=== PATIENT | female | born 1960 | race Caucasian/White ===

== ENCOUNTER 2021-11-07 17:18 | Emergency (ER) | payer OTHER ==
[2021-11-07] MEDS ORDERED: Sodium Chloride 0.9% 1000 ML 1,000 ML ONE (17:44)
[2021-11-07] MEDS ORDERED: Sodium Chloride 0.9% 1000 ML 1,000 ML IV SCH (17:45)
--- NOTE | 2021-11-07 18:13 | ERPHSYRPT ---
- History of Present Illness Time Seen by Provider: 11/07/21 17:35 Source: patient Exam Limitations: no limitations Patient Subjective Stated Complaint: pt here for abnormal labs, she states her amonia levels have been elevated, vomited yesterday, none today Triage Nursing Assessment: pt alert, able to undress self, resp easy, face mask in place, skin w/d/p. no edema noted, abd soft Physician History: Patient is a 61-year-old white female who is in a alcohol and drug rehab facility who has a portal systemic shunt who is sent to the ER because she has elevation of her liver enzymes and her ammonia seems to be higher. She is being treated with lactulose. She did receive 1 Pfizer COVID shot vaccine she vomited one yesterday that she is no report of any GI bleed. She has been without alcohol for 14 days. On arrival she seems to be alert and oriented and pleasant. Severity: mild Associated Symptoms: nausea, vomiting Allergies/Adverse Reactions: acetaminophen [From Tylenol] Adverse Reaction (Verified 11/07/21 17:36) Hx Tetanus, Diphtheria Vaccination/Date Given: No Hx Influenza Vaccination/Date Given: No Hx Pneumococcal Vaccination/Date Given: No Immunizations Up to Date: Yes Travel Risk - International Travel Have you traveled outside of the country in past 3 weeks: No - Coronavirus Screening Are you exhibiting any of the following symptoms?: No - Vaccine Status Have you recieved a Covid-19 vaccination: Yes [employer]: [employer] - Vaccination Dates Date of 2cond Vaccination (if applicable): n/a - Review of Systems Constitutional: No Fever, No Chills Eyes: No Symptoms Ears, Nose, & Throat: No Symptoms Respiratory: No Cough, No Dyspnea Cardiac: No Chest Pain, No Edema, No Syncope Abdominal/Gastrointestinal: Nausea, Vomiting, No Abdominal Pain, No Diarrhea Genitourinary Symptoms: No Dysuria Musculoskeletal: No Back Pain, No Neck Pain Skin: No Rash Neurological: No Dizziness, No Focal Weakness, No Sensory Changes Psychological: No Symptoms Endocrine: No Symptoms All Other Systems: Reviewed and Negative - Past Medical History Pertinent Past Medical History: Yes Other Medical History: 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, - Past Surgical History Past Surgical History: Yes Neuro Surgical History: Brain Shunt Female Surgical History: Hysterectomy - Social History Smoking Status: Current every day smoker How long have you smoked: 1/2 Exposure to second hand smoke: Yes Patient Lives Alone: No (rehab center) - Nursing Vital Signs Nursing Vital Signs: Initial Vital Signs Temperature 97.2 F 11/07/21 17:29 Pulse Rate 102 H 11/07/21 17:29 Respiratory Rate 18 11/07/21 17:29 Blood Pressure 152/83 11/07/21 17:29 O2 Sat by Pulse Oximetry 96 11/07/21 17:29 Pain Scale Pain Intensity 0 - Physical Exam General Appearance: mild distress, alert Eye Exam: PERRL/EOMI, eyes nml inspection Ears, Nose, Throat Exam: normal ENT inspection, TMs normal, pharynx normal, moist mucous membranes Neck Exam: normal inspection, non-tender, supple, full range of motion Respiratory Exam: normal breath sounds, lungs clear, No respiratory distress Cardiovascular Exam: regular rate/rhythm, normal heart sounds, normal peripheral pulses Gastrointestinal/Abdomen Exam: soft, normal bowel sounds, No tenderness, No mass Back Exam: normal inspection, normal range of motion, No CVA tenderness, No vertebral tenderness Extremity Exam: normal inspection, normal range of motion, pelvis stable Neurologic Exam: alert, oriented x 3, cooperative, normal mood/affect, nml cerebellar function, nml station & gait, sensation nml, No motor deficits Skin Exam: normal color, warm, dry, No rash Lymphatic Exam: No adenopathy SpO2: 96 - Course Nursing assessment & vital signs reviewed: Yes EKG Interpreted by Me: RATE (100), Sinus Rhythm, NORMAL AXIS, prolonged QT interval, NORMAL QRS, Non-specific ST Changes - Radiology Exams Chest X-ray Interpretation: Interpreted by me, Negative (Negative for any acute process) - CT Exams Abdomen/Pelvis CT Interpretation: Tele-radiologist Report Ordered Tests: Active Orders 24 hr Category Date Time Status EKG-ER Only STAT Care 11/07/21 17:34 Active IV Insertion STAT Care 11/07/21 17:34 Active ABDOMEN AND PELVIS W/0 CONTRAS [CT] Stat Exams 11/07/21 17:35 Taken CHEST 1 VIEW (PORTABLE) Stat Exams 11/07/21 17:36 Taken ACETAMINOPHEN Stat Lab 11/07/21 17:35 Completed AMYLASE Stat Lab 11/07/21 17:35 Completed Alcohol [ETHYL ALCOHOL] Stat Lab 11/07/21 17:35 Completed BLOOD CULTURE Stat Lab 11/07/21 18:22 Received CBC W DIFF Stat Lab 11/07/21 17:34 Completed CMP Stat Lab 11/07/21 17:35 Completed LIPASE Stat Lab 11/07/21 17:35 Completed Lactic Acid Stat Lab 11/07/21 17:45 Completed MAGNESIUM Stat Lab 11/07/21 17:35 Completed Occult Blood Stool [FECAL OCCULT BLOOD - SCREENING] Lab 11/07/21 17:39 Ordered Stat PROTIME WITH INR Stat Lab 11/07/21 17:35 Completed TROPONIN Q3H Lab 11/07/21 17:35 Completed TROPONIN Q3H Lab 11/07/21 20:45 Ordered TROPONIN Q3H Lab 11/07/21 23:45 Ordered TROPONIN Q3H Lab 11/08/21 02:45 Ordered TROPONIN Q3H Lab 11/08/21 05:45 Ordered UA W/RFX CULTURE Stat Lab 11/07/21 Ordered Urine Triage Profile Stat Lab 11/07/21 17:35 Ordered Medication Summary Generic Name Dose Route Start Last Admin Trade Name Freq PRN Reason Stop Dose Admin Sodium Chloride 1,000 mls @ 100 mls/hr 11/07/21 17:45 11/07/21 17:45 Sodium Chloride 0.9% 1000 Ml IV 12/07/21 17:44 100 mls/hr .Q10H DORCAS Administration Lab/Rad Data: Laboratory Result Diagrams 11/07/21 17:34 11/07/21 17:35 Laboratory Results 11/07/21 11/07/21 11/07/21 Range/Units 17:45 17:35 17:35 WBC (4.0-10.5) x10^3/uL RBC (4.1-5.4) x10^6/uL Hgb (12.0-16.0) g/dL Hct (35-47) % MCV (78-100) fL MCH (26-32) pg MCHC (32-36) g/dL RDW (11.5-14.0) % Plt Count (150-450) x10^3/uL MPV (7.5-11.0) fL Gran % (36.0-66.0) % Immature Gran % (Auto) (0.00-0.1) % Nucleat RBC Rel Count (0.00-0.1) % Eos # (Auto) (0-0.5) x10^3/uL Immature Gran # (Auto) (0.00-0.01) x10^3u/L Absolute Lymphs (auto) (1.0-4.6) x10^3/uL Absolute Monos (auto) (0.0-1.3) x10^3/uL Absolute Nucleated RBC (0.00-0.01) x10^3u/L Lymphocytes % (24.0-44.0) % Monocytes % (0.0-12.0) % Eosinophils % (0.00-5.0) % Basophils % (0.0-0.4) % Absolute Granulocytes (1.4-6.9) x10^3/uL Basophils # (0-0.4) x10^3/uL PT (9.4-12.5) SECONDS INR (0.8-3.0) Sodium (137-145) mmol/L Potassium (3.5-5.1) mmol/L Chloride (98-107) mmol/L Carbon Dioxide (22-30) mmol/L Anion Gap (5-15) MEQ/L BUN (7-17) mg/dL Creatinine (0.52-1.04) mg/dL Estimated GFR ML/MIN Glucose (74-106) mg/dL Lactic Acid 1.6 (0.4-2.0) Calcium (8.4-10.2) mg/dL Magnesium (1.6-2.3) mg/dL Total Bilirubin (0.2-1.3) mg/dL AST (14-36) U/L ALT (0-35) U/L Alkaline Phosphatase (38-126) U/L Ammonia 19 (9-30) umol/L Troponin I 0.014 (0.000-0.034) ng/mL Serum Total Protein (6.3-8.2) g/dL Albumin (3.5-5.0) g/dL Amylase (30-110) U/L Lipase (23-300) U/L Acetaminophen (10-30) ug/ml Ethyl Alcohol (0-10) mg/dL 11/07/21 11/07/21 11/07/21 Range/Units 17:35 17:35 17:35 WBC (4.0-10.5) x10^3/uL RBC (4.1-5.4) x10^6/uL Hgb (12.0-16.0) g/dL Hct (35-47) % MCV (78-100) fL MCH (26-32) pg MCHC (32-36) g/dL RDW (11.5-14.0) % Plt Count (150-450) x10^3/uL MPV (7.5-11.0) fL Gran % (36.0-66.0) % Immature Gran % (Auto) (0.00-0.1) % Nucleat RBC Rel Count (0.00-0.1) % Eos # (Auto) (0-0.5) x10^3/uL Immature Gran # (Auto) (0.00-0.01) x10^3u/L Absolute Lymphs (auto) (1.0-4.6) x10^3/uL Absolute Monos (auto) (0.0-1.3) x10^3/uL Absolute Nucleated RBC (0.00-0.01) x10^3u/L Lymphocytes % (24.0-44.0) % Monocytes % (0.0-12.0) % Eosinophils % (0.00-5.0) % Basophils % (0.0-0.4) % Absolute Granulocytes (1.4-6.9) x10^3/uL Basophils # (0-0.4) x10^3/uL PT 13.2 H (9.4-12.5) SECONDS INR 1.27 (0.8-3.0) Sodium (137-145) mmol/L Potassium (3.5-5.1) mmol/L Chloride (98-107) mmol/L Carbon Dioxide (22-30) mmol/L Anion Gap (5-15) MEQ/L BUN (7-17) mg/dL Creatinine (0.52-1.04) mg/dL Estimated GFR ML/MIN Glucose (74-106) mg/dL Lactic Acid (0.4-2.0) Calcium (8.4-10.2) mg/dL Magnesium 1.6 (1.6-2.3) mg/dL Total Bilirubin (0.2-1.3) mg/dL AST (14-36) U/L ALT (0-35) U/L Alkaline Phosphatase (38-126) U/L Ammonia (9-30) umol/L Troponin I (0.000-0.034) ng/mL Serum Total Protein (6.3-8.2) g/dL Albumin (3.5-5.0) g/dL Amylase (30-110) U/L Lipase (23-300) U/L Acetaminophen < 10 L (10-30) ug/ml Ethyl Alcohol < 10 (0-10) mg/dL 11/07/21 11/07/21 Range/Units 17:35 17:34 WBC 6.6 (4.0-10.5) x10^3/uL RBC 4.04 L (4.1-5.4) x10^6/uL Hgb 13.3 (12.0-16.0) g/dL Hct 40.7 (35-47) % MCV 100.7 H (78-100) fL MCH 32.9 H (26-32) pg MCHC 32.7 (32-36) g/dL RDW 12.5 (11.5-14.0) % Plt Count 154 (150-450) x10^3/uL MPV 10.1 (7.5-11.0) fL Gran % 49.5 (36.0-66.0) % Immature Gran % (Auto) 0.2 H (0.00-0.1) % Nucleat RBC Rel Count 0.0 (0.00-0.1) % Eos # (Auto) 0.33 (0-0.5) x10^3/uL Immature Gran # (Auto) 0.01 (0.00-0.01) x10^3u/L Absolute Lymphs (auto) 2.27 (1.0-4.6) x10^3/uL Absolute Monos (auto) 0.59 (0.0-1.3) x10^3/uL Absolute Nucleated RBC 0.00 (0.00-0.01) x10^3u/L Lymphocytes % 34.6 (24.0-44.0) % Monocytes % 9.0 (0.0-12.0) % Eosinophils % 5.0 (0.00-5.0) % Basophils % 1.7 (0.0-0.4) % Absolute Granulocytes 3.25 (1.4-6.9) x10^3/uL Basophils # 0.11 (0-0.4) x10^3/uL PT (9.4-12.5) SECONDS INR (0.8-3.0) Sodium 132 L (137-145) mmol/L Potassium 4.1 (3.5-5.1) mmol/L Chloride 99 (98-107) mmol/L Carbon Dioxide 23 (22-30) mmol/L Anion Gap 14.0 (5-15) MEQ/L BUN 8 (7-17) mg/dL Creatinine 0.65 (0.52-1.04) mg/dL Estimated GFR > 60.0 ML/MIN Glucose 93 (74-106) mg/dL Lactic Acid (0.4-2.0) Calcium 9.3 (8.4-10.2) mg/dL Magnesium (1.6-2.3) mg/dL Total Bilirubin 1.90 H (0.2-1.3) mg/dL AST 76 H (14-36) U/L ALT 50 H (0-35) U/L Alkaline Phosphatase 164 H (38-126) U/L Ammonia (9-30) umol/L Troponin I (0.000-0.034) ng/mL Serum Total Protein 7.4 (6.3-8.2) g/dL Albumin 3.8 (3.5-5.0) g/dL Amylase 69 (30-110) U/L Lipase 211 (23-300) U/L Acetaminophen (10-30) ug/ml Ethyl Alcohol (0-10) mg/dL - Progress Progress: unchanged - Departure Departure Disposition: Home Clinical Impression: Increased ammonia level Condition: Stable Critical Care Time: No Referrals: KATHY OSEI PA [NON-STAFF PHY W/O PRIVILEGES] - Follow up/PCP as directed Instructions: Ammonia Blood Test Prescriptions: Metronidazole 500 mg [Flagyl 500 MG] 500 mg PO TID #21 tablet Lactulose [Lactulose 20 gm/30Ml Ud Cup] 20 gm PO QID 30 Days #120 udcup
[2021-11-07 18:39] LABS: Absolute Neutrophil Ct (ANC) 3.25 x10^3/uL (1.4-6.9); Basophil (Absolute #) 0.11 x10^3/uL (0-0.4); Eosinophil (Absolute #) 0.33 x10^3/uL (0-0.5); Hematocrit 40.7 % (35-47); Hemoglobin 13.3 g/dL (12.0-16.0); Lymphocyte (Absolute #) 2.27 x10^3/uL (1.0-4.6); Lymphocytes % 34.6 % (24.0-44.0); Mean Cell Volume 100.7 fL (78-100); Mean Corpuscular Hemoglobin 32.9 pg (26-32); Mean Corpuscular Hgb Concent. 32.7 g/dL (32-36); Mean Platelet Volume 10.1 fL (7.5-11.0); Monocyte (Absolute #) 0.59 x10^3/uL (0.0-1.3); Neutrophil % 49.5 % (36.0-66.0); Platelet Count 154 x10^3/uL (150-450); Red Blood Count 4.04 x10^6/uL (4.1-5.4); Red Cell Distribution Width 12.5 % (11.5-14.0); White Blood Count 6.6 x10^3/uL (4.0-10.5)
[2021-11-07 18:55] LABS: ETHYL ALCOHOL < 10 mg/dL (0-10); MAGNESIUM 1.6 mg/dL (1.6-2.3)
[2021-11-07 18:57] LABS: ALBUMIN 3.8 g/dL (3.5-5.0); ALKALINE PHOSPHATASE 164 U/L (38-126); AMYLASE 69 U/L (30-110); BLOOD UREA NITROGEN 8 mg/dL (7-17); CHLORIDE 99 mmol/L (98-107); Calcium 9.3 mg/dL (8.4-10.2); Carbon Dioxide 23 mmol/L (22-30); Creatinine 1 0.65 mg/dL (0.52-1.04); EST GLOMERULAR FILTRATION RATE > 60.0 ML/MIN; Glucose 93 mg/dL (74-106); INR 1.27 (0.8-3.0); LIPASE 211 U/L (23-300); PROTIME 13.2 SECONDS (9.4-12.5); Potassium 4.1 mmol/L (3.5-5.1); SGOT/AST 76 U/L (14-36); SGPT/ALT 50 U/L (0-35); SODIUM 132 mmol/L (137-145); Total Protein 7.4 g/dL (6.3-8.2)
[2021-11-07 19:13] VITALS: BP 114/78
[2021-11-07 19:21] VITALS: O2SAT 96
[2021-11-07 19:31] VITALS: PULSE 95
--- NOTE | 2021-11-08 08:35 | XRAY ---
Indication: Liver failure. TIPS procedure 1.5 years ago. Multiple contiguous axial images obtained through the abdomen and pelvis without contrast. Comparison: None Study is slightly degraded by respiration artifact. Lung bases demonstrate small right lower lobe and right infrahilar calcified granulomas. No infiltrate or effusion. Heart not enlarged. Noncontrasted stomach and bowel loops appear nonobstructed. Appendix not visualized. Moderate diffuse scattered colonic fecal debris throughout including rectum. No free fluid/air. Liver demonstrates portal shunt in situ. Tiny splenic calcified granulomas. Remaining liver, gallbladder, pancreas, spleen, adrenal glands, kidneys, ureters, and bladder are unremarkable for noncontrast exam. Moderate scattered aortoiliac calcifications without AAA. Osseous structures intact with mild degenerative changes throughout the spine, remote T12 superior endplate fracture with approximately 25% height loss, and bilateral L5 spondylolysis with minimal 1-2 mm spondylolisthesis. Impression: 1. Respiration artifact. 2. Moderate diffuse fecal stasis. 3. Incidental portal shunt, chronic bony findings, and old granulomatous disease.
--- NOTE | 2021-11-08 08:37 | XRAY ---
Indication: Cough. Comparison: None Portable chest demonstrates minimal left base subsegmental atelectasis/scarring and a few bilateral calcified granulomas. No focal infiltrate, consolidation, or large effusion. Heart not enlarged. Bony thorax intact with osteopenia, mild degenerative changes, old right clavicle fracture, and old right humerus fracture with orthopedic fixation hardware. Impression: Nonacute chest with chronic features.
== END 2021-11-07 19:41 | disposition home or self-care (01) ==
LOC: ED 17:18
DX: R79.89 Other specified abnormal findings of blood chemistry (principal); R74.8 Abnormal levels of other serum enzymes; R11.2 Nausea with vomiting, unspecified; Z98.2 Presence of cerebrospinal fluid drainage device; Z72.0 Tobacco use; Z79.899 Other long term (current) drug therapy
CPT/HCPCS: 36000; 36415; 71045; 74176; 80053; 80307; 82140; 82150; 83605; 83690; 83735; 84484; 85025; 85610; 87040; 93005; 99284; G0480

== ENCOUNTER 2021-11-14 09:30 | Emergency (ER) | payer OTHER ==
--- NOTE | 2021-11-14 10:00 | ERPHSYRPT ---
- History of Present Illness Time Seen by Provider: 11/14/21 09:50 Source: patient Exam Limitations: no limitations Patient Subjective Stated Complaint: Pt states "I have been weak and shaky for the past week or so." Triage Nursing Assessment: PT presented alert and oriented X 3, skin pwd. Pt has tremors and when ambulating she is extremely shaky. Physician History: Patient is a 61-year-old female presents to emergency department for evaluation of generalized weakness and tremors. Patient states symptoms started ap proximately 1 week ago. Patient has been feeling weak and tremulous for the past week. No pain. No chest pain or shortness of breath. No nausea vomiting or diaphoresis. Patient has a history of alcoholism and is currently trying to quit. Patient's last drink was approximately 24 days ago. Patient states that she quit she has been having trouble sleeping. Patient has been medicated for sleep. Patient recently started on gabapentin. Otherwise no new medications added in the past month. Patient denies trauma. No chest pain or shortness of breath. No nausea vomiting or diaphoresis. No numbness tingling or weakness. Patient voices no other complaints or concerns at this time. Timing/Duration: week(s) (1 week) Severity: moderate Modifying Factors: Improves With: nothing Associated Symptoms: denies symptoms Allergies/Adverse Reactions: acetaminophen [From Tylenol] Adverse Reaction (Verified 11/07/21 17:36) Home Medications: Acamprosate Calcium 333 mg PO DAILY 11/14/21 [History] Furosemide 40 mg [Lasix 40 MG] 40 mg PO DAILY 11/14/21 [History] Gabapentin 100 mg PO HS 11/14/21 [History] Lactulose [Lactulose 20 gm/30Ml Ud Cup] 20 gm PO QID 11/14/21 [History] Loratadine 10 mg [Claritin 10 mg] 10 mg PO DAILY 11/14/21 [History] Melatonin 10 mg PO HS 11/14/21 [History] Omeprazole 40 mg PO DAILY 11/14/21 [History] Potassium Chloride 20 meq PO DAILY 11/14/21 [History] Sulfamethoxazole/Trimethoprim [Sulfamethoxazole-Tmp Ds Tablet] 1 each PO BID 11/14/21 [History] Trazodone HCl 50 mg [Desyrel 50 mg] 1 tab PO DAILY 11/14/21 [History] hydrOXYzine pamoate [Vistaril] 50 mg PO TID 11/14/21 [History] metroNIDAZOLE [Metronidazole] 500 mg PO DAILY 11/14/21 [History] Hx Tetanus, Diphtheria Vaccination/Date Given: No Hx Influenza Vaccination/Date Given: No Hx Pneumococcal Vaccination/Date Given: No Immunizations Up to Date: Yes Travel Risk - International Travel Have you traveled outside of the country in past 3 weeks: No - Coronavirus Screening Are you exhibiting any of the following symptoms?: No Close contact with a COVID-19 positive Pt in past 14-21 Days: No - Vaccine Status Have you recieved a Covid-19 vaccination: Yes [employer]: [employer] - Vaccination Dates Date of 2cond Vaccination (if applicable): n/a - Review of Systems Constitutional: No Symptoms, No Fever, No Chills Eyes: No Symptoms Ears, Nose, & Throat: No Symptoms Respiratory: No Symptoms, No Cough, No Dyspnea Cardiac: No Symptoms, No Chest Pain, No Edema, No Syncope Abdominal/Gastrointestinal: No Symptoms, No Abdominal Pain, No Nausea, No Vomiting, No Diarrhea Genitourinary Symptoms: No Symptoms, No Dysuria Musculoskeletal: No Symptoms, No Back Pain, No Neck Pain Skin: No Symptoms, No Rash Neurological: No Symptoms, No Dizziness, No Focal Weakness, No Sensory Changes Psychological: No Symptoms Endocrine: No Symptoms Hematologic/Lymphatic: No Symptoms Immunological/Allergic: No Symptoms All Other Systems: Reviewed and Negative - Past Medical History Pertinent Past Medical History: Yes Neurological History: No Pertinent History Other Medical History: 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, - Past Surgical History Past Surgical History: Yes Neuro Surgical History: Brain Shunt Female Surgical History: Hysterectomy Other Surgical History: 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 - Social History Smoking Status: Current every day smoker How long have you smoked: 1/2 Exposure to second hand smoke: Yes Drug Use: none Patient Lives Alone: No (rehab center) - Nursing Vital Signs Nursing Vital Signs: Initial Vital Signs Temperature 99.0 F 11/14/21 09:41 Pulse Rate 104 H 11/14/21 09:41 Respiratory Rate 20 11/14/21 09:41 Blood Pressure 144/77 11/14/21 09:41 O2 Sat by Pulse Oximetry 96 11/14/21 09:41 Pain Scale Pain Intensity 0 - Physical Exam General Appearance: no apparent distress, alert Eye Exam: PERRL/EOMI, eyes nml inspection Ears, Nose, Throat Exam: normal ENT inspection, TMs normal, pharynx normal, moist mucous membranes Neck Exam: normal inspection, non-tender, supple, full range of motion Respiratory Exam: normal breath sounds, lungs clear, airway intact, No chest tenderness, No respiratory distress Cardiovascular Exam: regular rate/rhythm, normal heart sounds, normal peripheral pulses Gastrointestinal/Abdomen Exam: soft, normal bowel sounds, No tenderness, No mass Back Exam: normal inspection, normal range of motion, No CVA tenderness, No vertebral tenderness Extremity Exam: normal inspection, normal range of motion, pelvis stable Neurologic Exam: alert, oriented x 3, cooperative, normal mood/affect, nml cerebellar function, nml station & gait, sensation nml, No motor deficits Skin Exam: normal color, warm, dry, No rash Lymphatic Exam: No adenopathy SpO2 Interpretation: normal SpO2: 96 O2 Delivery: Room Air - Course Nursing assessment & vital signs reviewed: Yes EKG Interpreted by Me: RATE (86), Sinus Rhythm, NORMAL AXIS, prolonged QT interval - CT Exams Abdomen/Pelvis CT Interpretation: Tele-radiologist Report (Fecal stasis with rectal impaction. Portal shot in situ. Chronic bony findings. Old granulomatous disease remote T12 endplate fracture L5 spondylosis) Ordered Tests: Active Orders 24 hr Category Date Time Status Dough Cutter STAT Care 11/14/21 09:54 Active EKG-ER Only STAT Care 11/14/21 09:53 Active IV Insertion STAT Care 11/14/21 09:53 Active Pulse Oximetry (ED) STAT Care 11/14/21 09:53 Active ABDOMEN AND PELVIS W/0 CONTRAS [CT] Stat Exams 11/14/21 14:41 Completed CBC W DIFF Stat Lab 11/14/21 10:43 Completed CMP Stat Lab 11/14/21 10:43 Completed LIPASE Stat Lab 11/14/21 13:20 Completed MAGNESIUM Stat Lab 11/14/21 10:43 Completed TROPONIN Q3H Lab 11/14/21 10:43 Completed TROPONIN Q3H Lab 11/14/21 13:20 Completed TROPONIN Q3H Lab 11/14/21 16:00 Ordered TROPONIN Q3H Lab 11/14/21 19:00 Ordered TROPONIN Q3H Lab 11/14/21 22:00 Ordered TSH, 3RD Generation Stat Lab 11/14/21 10:43 Completed UA W/RFX CULTURE Stat Lab 11/14/21 Ordered Medication Summary Discontinued Medications Generic Name Dose Route Start Last Admin Trade Name Mirella PRN Reason Stop Dose Admin Sodium Chloride 1,000 mls @ 999 mls/hr 11/14/21 13:17 11/14/21 14:50 Sodium Chloride 0.9% 1000 Ml IV 11/14/21 14:17 Infused .Q1H1M STA Infusion Sodium Chloride Confirm 11/14/21 13:33 Sodium Chloride 0.9% 1000 Ml Administered 11/14/21 13:34 Dose 1,000 mls @ ud .ROUTE .STK-MED ONE Lab/Rad Data: Laboratory Result Diagrams 11/14/21 10:43 11/14/21 10:43 Laboratory Results 11/14/21 11/14/21 11/14/21 Range/Units 13:20 13:20 10:43 WBC (4.0-10.5) x10^3/uL RBC (4.1-5.4) x10^6/uL Hgb (12.0-16.0) g/dL Hct (35-47) % MCV (78-100) fL MCH (26-32) pg MCHC (32-36) g/dL RDW (11.5-14.0) % Plt Count (150-450) x10^3/uL MPV (7.5-11.0) fL Gran % (36.0-66.0) % Immature Gran % (Auto) (0.00-0.4) % Nucleat RBC Rel Count (0.00-0.1) % Eos # (Auto) (0-0.5) x10^3/uL Immature Gran # (Auto) (0.00-0.03) x10^3u/L Absolute Lymphs (auto) (1.0-4.6) x10^3/uL Absolute Monos (auto) (0.0-1.3) x10^3/uL Absolute Nucleated RBC (0.00-0.01) x10^3u/L Lymphocytes % (24.0-44.0) % Monocytes % (0.0-12.0) % Eosinophils % (0.00-5.0) % Basophils % (0.0-0.4) % Absolute Granulocytes (1.4-6.9) x10^3/uL Basophils # (0-0.4) x10^3/uL Sodium (137-145) mmol/L Potassium (3.5-5.1) mmol/L Chloride (98-107) mmol/L Carbon Dioxide (22-30) mmol/L Anion Gap (5-15) MEQ/L BUN (7-17) mg/dL Creatinine (0.52-1.04) mg/dL Estimated GFR ML/MIN Glucose (74-106) mg/dL Calcium (8.4-10.2) mg/dL Magnesium (1.6-2.3) mg/dL Total Bilirubin (0.2-1.3) mg/dL AST (14-36) U/L ALT (0-35) U/L Alkaline Phosphatase (38-126) U/L Troponin I < 0.012 < 0.012 (0.000-0.034) ng/mL Serum Total Protein (6.3-8.2) g/dL Albumin (3.5-5.0) g/dL Lipase 207 (23-300) U/L TSH 3rd Generation (0.47-4.68) mIU/L 11/14/21 11/14/21 Range/Units 10:43 10:43 WBC 4.8 (4.0-10.5) x10^3/uL RBC 3.86 L (4.1-5.4) x10^6/uL Hgb 12.9 (12.0-16.0) g/dL Hct 38.6 (35-47) % MCV 100.0 (78-100) fL MCH 33.4 H (26-32) pg MCHC 33.4 (32-36) g/dL RDW 12.2 (11.5-14.0) % Plt Count 142 L (150-450) x10^3/uL MPV 9.7 (7.5-11.0) fL Gran % 63.6 (36.0-66.0) % Immature Gran % (Auto) 0.2 (0.00-0.4) % Nucleat RBC Rel Count 0.0 (0.00-0.1) % Eos # (Auto) 0.23 (0-0.5) x10^3/uL Immature Gran # (Auto) 0.01 (0.00-0.03) x10^3u/L Absolute Lymphs (auto) 0.97 L (1.0-4.6) x10^3/uL Absolute Monos (auto) 0.48 (0.0-1.3) x10^3/uL Absolute Nucleated RBC 0.00 (0.00-0.01) x10^3u/L Lymphocytes % 20.2 L (24.0-44.0) % Monocytes % 10.0 (0.0-12.0) % Eosinophils % 4.8 (0.00-5.0) % Basophils % 1.2 (0.0-0.4) % Absolute Granulocytes 3.06 (1.4-6.9) x10^3/uL Basophils # 0.06 (0-0.4) x10^3/uL Sodium 136 L (137-145) mmol/L Potassium 4.6 (3.5-5.1) mmol/L Chloride 103 (98-107) mmol/L Carbon Dioxide 19 L (22-30) mmol/L Anion Gap 18.3 H (5-15) MEQ/L BUN 9 (7-17) mg/dL Creatinine 0.77 (0.52-1.04) mg/dL Estimated GFR > 60.0 ML/MIN Glucose 109 H (74-106) mg/dL Calcium 9.6 (8.4-10.2) mg/dL Magnesium 1.6 (1.6-2.3) mg/dL Total Bilirubin 1.70 H (0.2-1.3) mg/dL AST 84 H (14-36) U/L ALT 43 H (0-35) U/L Alkaline Phosphatase 147 H (38-126) U/L Troponin I (0.000-0.034) ng/mL Serum Total Protein 7.1 (6.3-8.2) g/dL Albumin 3.8 (3.5-5.0) g/dL Lipase (23-300) U/L TSH 3rd Generation 1.210 (0.47-4.68) mIU/L - Progress Progress: improved Progress Note: Patient reassessed. She feels well. Tremor significantly improved. CT abdomen pelvis shows constipation and fecal impaction. Patient states she is currently on lactulose and prefers to wait for the lactulose to help her constipation versus obtaining an enema. Patient states she will try [id number] laxative as necessary. Patient will follow up with her primary care doctor Dr. Angel within 48 hours for evaluation. Mildly elevated liver enzymes as well as total bili and alkaline phosphatase. Patient has no right upper quadrant pain. Lipase normal. Upon review of patient's labs these labs are normally elevated and are actually better than previous.. Patient voices no other complaints or concerns at this time. Portions of this note were created with voice recognition technology. There may be grammatical, spelling, punctuation or sound alike errors 11/14/21 15:14 TSH within normal limits. 11/14/21 15:20 Counseled pt/family regarding: diagnosis, need for follow-up, rad results - Departure Departure Disposition: Home Clinical Impression: fecal stasis, Fecal impaction in rectum, Old granulomatous disease, Remote T12 endplate fracture, Spondylolisthesis at L5-S1 level, Total bilirubin, elevated, Transaminitis, Elevated alkaline phosphatase level Condition: Stable Critical Care Time: No Referrals: DOCTOR,NO FAMILY [Primary Care Provider] - Follow up/PCP as directed RUKHSANA VAZQUEZ DO [ACTIVE STAFF] - Follow up/PCP as directed Additional Instructions: Please follow-up with Dr. Angel within 48 hours for evaluation. Discharge/Care Plan NIECYDERICK was seen on 11/14/21 in the Emergency Room. The patient was counseled regarding Diagnosis,Lab results, Imaging studies, need for follow up and when to return to the Emergency Room. Prescriptions given: Discharge Note I have spoken with the patient and/or caregivers. I have explained the patient's condition, diagnosis and treatment plan based on the information available to me at this time. I have answered the patient's and/or caregiver's questions and addressed any concerns. The patient and/or caregivers have as good understanding of the patient's diagnosis, condition and treatment plan as can be expected at this point. The vital signs have been stable. The patient's condition is stable and appropriate for discharge from the emergency department. The patient will pursue further outpatient evaluation with the primary care physician or other designated or consulting physician as outlined in the discharge instructions. The patient and/or caregivers are agreeable to this plan of care and follow-up instructions have been explained in detail. The patient and/or caregivers have received these instruction. The patient/and or caregivers are aware that any significant change in condition or worsening of symptoms should prompt an immediate return to this or the closest emergency department or call 911.
[2021-11-14 10:43] LABS: Absolute Neutrophil Ct (ANC) 3.06 x10^3/uL (1.4-6.9); Basophil (Absolute #) 0.06 x10^3/uL (0-0.4); Eosinophil % 4.8 % (0.00-5.0); Eosinophil (Absolute #) 0.23 x10^3/uL (0-0.5); Hematocrit 38.6 % (35-47); Hemoglobin 12.9 g/dL (12.0-16.0); Lymphocyte (Absolute #) 0.97 x10^3/uL (1.0-4.6); Lymphocytes % 20.2 % (24.0-44.0); Mean Corpuscular Hemoglobin 33.4 pg (26-32); Mean Corpuscular Hgb Concent. 33.4 g/dL (32-36); Mean Platelet Volume 9.7 fL (7.5-11.0); Monocyte (Absolute #) 0.48 x10^3/uL (0.0-1.3); Neutrophil % 63.6 % (36.0-66.0); Platelet Count 142 x10^3/uL (150-450); Red Blood Count 3.86 x10^6/uL (4.1-5.4); Red Cell Distribution Width 12.2 % (11.5-14.0); White Blood Count 4.8 x10^3/uL (4.0-10.5)
[2021-11-14 12:13] LABS: ALBUMIN 3.8 g/dL (3.5-5.0); ALKALINE PHOSPHATASE 147 U/L (38-126); ANION GAP 18.3 MEQ/L (5-15); BLOOD UREA NITROGEN 9 mg/dL (7-17); CHLORIDE 103 mmol/L (98-107); Calcium 9.6 mg/dL (8.4-10.2); Carbon Dioxide 19 mmol/L (22-30); Creatinine 1 0.77 mg/dL (0.52-1.04); EST GLOMERULAR FILTRATION RATE > 60.0 ML/MIN; Glucose 109 mg/dL (74-106); MAGNESIUM 1.6 mg/dL (1.6-2.3); Potassium 4.6 mmol/L (3.5-5.1); SGOT/AST 84 U/L (14-36); SGPT/ALT 43 U/L (0-35); SODIUM 136 mmol/L (137-145); Total Protein 7.1 g/dL (6.3-8.2)
[2021-11-14] MEDS ORDERED: Sodium Chloride 0.9% 1000 ML 1,000 ML IV STA (13:17)
[2021-11-14] MEDS ORDERED: Sodium Chloride 0.9% 1000 ML 1,000 ML ONE (13:33)
--- NOTE | 2021-11-14 14:53 | XRAY ---
Indication: Abdomen bloating. Transaminitis. Multiple contiguous axial images obtained through the abdomen and pelvis without contrast. Comparison: November 07, 2021. Lung bases again demonstrates right infrahilar and right lower lobe calcified granulomas. No infiltrate or effusion. Heart is not enlarged. Noncontrasted stomach and bowel loops appear nonobstructed. Again moderate diffuse scattered colonic fecal debris with rectal impaction. Liver demonstrates stable portal shunt in situ. No free fluid/air. Stable tiny splenic granulomas. Remaining liver, gallbladder, pancreas, spleen, adrenal glands, kidneys, ureters, and bladder are unremarkable for noncontrast exam. Stable moderate scattered aortoiliac calcifications without AAA. Osseous structures intact again with mild degenerative changes throughout the spine, remote T12 superior endplate fracture, and bilateral L5 spondylolysis with 1-2 mm listhesis. Impression: No change compared to CT one week ago. Again moderate diffuse fecal stasis with rectal impaction, portal shunt in situ, chronic bony findings, arteriosclerotic disease, and old granulomatous disease. No new/acute findings.
[2021-11-14 16:21] VITALS: BP 144/72; PULSE 78; O2SAT 98
== END 2021-11-14 16:21 | disposition home or self-care (01) ==
LOC: ED 09:30
DX: K59.00 Constipation, unspecified (principal); K59.89 Other specified functional intestinal disorders; D71 Functional disorders of polymorphonuclear neutrophils; M43.17 Spondylolisthesis, lumbosacral region; R74.01 Elevation of levels of liver transaminase levels; R74.8 Abnormal levels of other serum enzymes; R17 Unspecified jaundice; M84.48XD Pathological fracture, other site, subsequent encounter for fracture with routine healing; R53.1 Weakness; Z72.0 Tobacco use; Z79.899 Other long term (current) drug therapy
CPT/HCPCS: 36000; 36415; 74176; 80053; 83690; 83735; 84443; 84484; 85025; 93005; 93041; 94760; 96360; 99284